=== PATIENT | female | born 1940 | race Caucasian/White ===

== ENCOUNTER 2017-12-01 08:22 | Inpatient (IN) ==
--- NOTE | 2017-11-30 16:09 | Discharge Summary ---
<Roz Collado E - Last Filed: 11/30/17 16:07> Date of Encounter: 11/30/17 - Discharge Diagnosis (1) Rotator cuff tear arthropathy of right shoulder Priority: Primary Status: Chronic (2) Osteoarthritis of right shoulder Priority: Secondary Status: Chronic Qualifiers: Osteoarthritis type: unspecified Qualified Code(s): M19.011 - Primary osteoarthritis, right shoulder (3) Chronic atrial fibrillation Priority: Secondary Status: Chronic (4) lobsterman current use of anticoagulant Priority: Secondary Status: Chronic (5) COPD (chronic obstructive pulmonary disease) Priority: Secondary Status: Chronic Qualifiers: COPD type: unspecified COPD Qualified Code(s): J44.9 - Chronic obstructive pulmonary disease, unspecified (6) HTN (hypertension) Priority: Secondary Status: Chronic Qualifiers: Hypertension type: unspecified Qualified Code(s): I10 - Essential (primary ) hypertension (7) Sleep apnea Priority: Secondary Status: Chronic Qualifiers: Sleep apnea type: unspecified type Qualified Code(s): G47.30 - Sleep apnea , unspecified (8) Noncompliance with CPAP treatment Priority: Secondary Status: Chronic (9) HLD (hyperlipidemia) Priority: Secondary Status: Chronic Qualifiers: Hyperlipidemia type: unspecified Qualified Code(s): E78.5 - Hyperlipidemia , unspecified (10) Hypothyroidism Priority: Secondary Status: Chronic Qualifiers: Hypothyroidism type: unspecified Qualified Code(s): E03.9 - Hypothyroidism , unspecified (11) Dementia Priority: Secondary Status: Chronic Qualifiers: Dementia type: unspecified type Dementia behavioral disturbance: without behavioral disturbance Qualified Code(s): F03.90 - Unspecified dementia without behavioral disturbance - Discharge Medications Home Medications: OxyCODONE Immed Rel [Roxicodone 5 MG] 5 mg PO Q6HR PRN 7 Days #28 tablet [Rx] Albuterol Sulfate [Albuterol Inhaler] 2 puff IH Q4HR PRN 12/01/17 [History] Donepezil HCl [Aricept] 10 mg PO HS 12/01/17 [History] Levothyroxine Sodium 150 mcg PO DAILY 12/01/17 [History] Lisinopril [Zestril] 40 mg PO HS 12/01/17 [History] Oxygen 2 l NS AD 12/01/17 [History] Ranitidine HCl [Zantac] 150 mg PO BID 12/01/17 [History] Rivaroxaban [Xarelto] 20 mg PO DAILY 12/01/17 [History] amLODIPine [Norvasc] 5 mg PO DAILY 12/01/17 [History] dilTIAZem HCl [Diltiazem ER] 240 mg PO DAILY 12/01/17 [History] Allergies/Adverse Reactions: 3 Allergy/AdvReac Type Severity Reaction Status Date / Time Erythromycin Base Allergy Anaphylaxis Verified 11/16/17 14:36 Primary care physician: Bonifacio Brown - Patient Status Disposition: Home, Self-Care Condition: Good - Discharge Instructions Follow Up With: Roz Collado PAC [Physician Bundle Clerk] - 12/09/17 2:30 pm (Second followup 12/16/17 @ 9:15am) Stewart Ponce MD [Partnered Physician] - 12/29/17 5:30 pm Additional Instructions: Discharge Instructions: Total Shoulder Please call [facility] ([phone]), your Primary Care Physician, or report to the Emergency Room if you have any of the following symptoms: Nausea, vomiting, fever greater that 101.5, swelling, chest pain, shortness of breath, increased pain/redness/drainage/odor for your incision site, numbness/ tingling, or any other concerning symptoms. ACTIVITY: Always keep your arm in the sling. Do not raise your arm away from your body. Do not use your arm to help with getting in or out of bed. No weight bearing permitted. Only perform those exercises given to you by your therapist. MEDICATIONS: Upon discharge resume your home medications. Take all the medications as prescribed. Take a stool softener if taking narcotic pain medications. Stool softeners are only effective if you drink enough fluids. Drink 6-8 glass of water or fluids a day, unless this is not allowed for another health problem. Despite using stool softeners, if you haven't had a bowel movement in 3 days, please switch to a gentle laxative. Gentle laxatives are sold over the counter. You should have a bowel movement within 24 hours, if not call the office. You will be discharged from the hospital with a prescription for pain medication. You are encouraged to decrease the use of narcotic pain medication as tolerated. Should you require a refill, please call the office. [facility] prescribes narcotic pain medication for only 4-6 weeks after surgery. If you require pain medication beyond this time period, you may be referred to your Primary Care Physician or to the Pain Clinic for further evaluation. Plan ahead for refills on pain medication as many narcotics either need to be picked up at the office or mailed. It is best to call 48-72 hours in advance of needing a prescription refill so you don't run out of medication. To help control the post-operative pain, you may take NSAIDs (Aleve,Advil, Motrin, Ibuprofen, Naprosyn) or Tylenol as prescribed on the bottle in addition to the pain medication. WOUND CARE: Leave the dressing on for 7-10 days. You may change the dressing if it becomes saturated greater than 50%. Do not get the dressing wet at anytime. Wash your hands with antibacterial soap, rinse and dry prior to any wound care. If you have oumar the visiting nurse or rehab facility can remove the stapes 10-14 days after surgery and place steri-strips across the wound. Leave the steri-strips in place until they fall off on their own. You may let water from the shower run on top of the steri-strips. If you do not have a visiting nurse or rehab facility, you will need to return to the office at 10-14 days for the oumar to be removed. If you have itching or redness around the dressing call the office. FOLLOW-UP: Please follow up with your surgeon in the orthopedic clinic, as scheduled - Hospital Course Hospital course: Ms. Bruno is a 77 year old female - Time Spent with Patient Total time spent providing and/or coordinating discharge services: <Stewart Ponce - Last Filed: 12/02/17 11:00> Date of Encounter: 12/02/17 Time of Encounter: 11:00 - Discharge Diagnosis (1) Rotator cuff tear arthropathy of right shoulder Priority: Primary Status: Chronic (2) Osteoarthritis of right shoulder Priority: Primary Status: Chronic Qualifiers: Osteoarthritis type: unspecified Qualified Code(s): M19.011 - Primary osteoarthritis, right shoulder (3) Chronic atrial fibrillation Priority: Secondary Status: Chronic (4) penitentiary current use of anticoagulant Priority: Secondary Status: Chronic (5) COPD (chronic obstructive pulmonary disease) Priority: Secondary Status: Chronic Qualifiers: COPD type: unspecified COPD Qualified Code(s): J44.9 - Chronic obstructive pulmonary disease, unspecified (6) HTN (hypertension) Priority: Secondary Status: Chronic Qualifiers: Hypertension type: unspecified Qualified Code(s): I10 - Essential (primary ) hypertension (7) Sleep apnea Priority: Secondary Status: Chronic Qualifiers: Sleep apnea type: unspecified type Qualified Code(s): G47.30 - Sleep apnea , unspecified (8) Noncompliance with CPAP treatment Priority: Secondary Status: Chronic (9) HLD (hyperlipidemia) Priority: Secondary Status: Chronic Qualifiers: Hyperlipidemia type: unspecified Qualified Code(s): E78.5 - Hyperlipidemia , unspecified (10) Hypothyroidism Priority: Secondary Status: Chronic Qualifiers: Hypothyroidism type: unspecified Qualified Code(s): E03.9 - Hypothyroidism , unspecified (11) Dementia Priority: Secondary Status: Chronic Qualifiers: Dementia type: unspecified type Dementia behavioral disturbance: without behavioral disturbance Qualified Code(s): F03.90 - Unspecified dementia without behavioral disturbance (12) Status post reverse total replacement of right shoulder Priority: Primary Status: Acute Primary care physician: Bonifacio Brown - Patient Status Functional capacity at discharge: independent ambulation Overall status at discharge: patient is progressing back to baseline - Hospital Course Hospital course: Ms. Bruno is a 77 year old female Status post right total shoulder replacement The patient had an uneventful postoperative course. They received antibiotics and physical therapy and were discharged in stable condition. There will follow -up in the office in 2 weeks. - Time Spent with Patient Total time spent providing and/or coordinating discharge services:
--- NOTE | 2017-12-01 07:40 | Anesthesia Evaluation PreOp ---
Date of Encounter: 12/01/17 Time of Encounter: 08:53 - Past History Planned Operation: right total shoulder replacement Cardiac History: HTN, Hyperlipidemia, Arrhythmia (chronic a-fib) Pulmonary History: Former smoker (quit 26yrs ago), Asthma, COPD (uses home O2 prn), KASEY Dx (doesn't use CPAP) Other Medical History: Thyroid (hypo), GERD, Other (hx abdominal carcinoid tumors) Anesthesia History: No Prior Anesthetic Complications, Past Anesthesia (sinus sx , tubal, appy) Alcohol Use: none Drug use: none Medications and Allergies Metoclopramide [Reglan] 10 mg PO Q6HR PRN #30 mls 01/04/16 [Rx] OxyCODONE Immed Rel [Roxicodone 5 MG] 5 mg PO Q6HR PRN 7 Days #28 tablet [Rx] 3 Allergy/AdvReac Type Severity Reaction Status Date / Time Erythromycin Base Allergy Anaphylaxis Verified 11/16/17 14:36 - Meds/Allergy Pre-op Review Medications Reviewed: Yes (last dose of Xarelto was on 11-30) Allergies Reviewed: Yes Beta Blockers on Current Med List: No Anesthesia Results - Labs echo 2018: Impressions: Technically sub-optimal due to poor echocardiographic windows. LVEF 55-60%. Not all LV segments were well visualized, but overall LVEF is normal. Indeterminate diastolic function. Normal right ventricular structure and function. Unable to estimate RVSP due to lack of TR jet. No obvious significant valvular dysfunction. Laboratory Tests 11/16/17 11/16/17 14:45 14:45 Hgb 13.6 Hct 40.8 PT 32.4 H INR 2.9 APTT 38.6 H - Imaging EKG: report reviewed (ATRIAL FIBRILLATION ST DEVIATION AND MODERATE T-WAVE ABNORMALITY, CONSIDER ANTEROLATERAL ISCHEMIA) Additional studies: stress test 2019: Impression: Pharmacologic stress ECG is non-diagnostic for ischemia due to baseline non-specific ST and T changes. Gated EF = 67%. Perfusion imaging was negative for ischemia or infarct. Anesthesia Exam Selected Entries 12/01/17 08:49 Temperature 97.8 F Pulse Rate 77 Respiratory Rate 18 Blood Pressure 153/79 O2 Sat by Pulse Oximetry 98 Weight: 72kg NPO (# of Hours): 8 - HEENT Pupil (Motor): EOMI Mallampati: II Teeth: Missing, Poor dentition Oral Opening: Greater than 3 - PHOTOGRAPH ENLARGER LOC: Oriented PHOTOGRAPH ENLARGER Motor: Normal RUE, Normal LUE, Normal RLE, Normal LLE, Normal Face PHOTOGRAPH ENLARGER Sensory: Normal: RUE, LUE, RLE, LLE, Face - Cardiac Rhythm: Irregular Murmur: None - Pulmonary Breath Sounds: bilateral Clear Respiratory Effort: Symmetrical Anesthesia Assess/Plan ASA Score: 3 Modified Priscilla Scale for Level of Consciousness: Cooperative, oriented, and tranquil Anesthetic Plan: General Monitoring Plan: Standard Monitors Recovery Plan: PACU (agrees to GA. Will not offer block as it is not essential and patient off Xarelto at just 24 hours. Reviewed the [place] guidelines.)
[2017-12-01] MEDS ORDERED: Lidocaine -MPF 1% 2 ML VIAL ID ONE (08:52)
[2017-12-01] MEDS ORDERED: Albuterol 2.5 MG/3 ML NEBULIZER IH ONE (08:52)
[2017-12-01] MEDS ORDERED: CeFAZolin Syr 2,000MG/20 ML 2,000 MG/20 ML SYRINGE IVPB ONE (08:52)
[2017-12-01] MEDS ORDERED: Ringers Solution, Lactated 1,000 ML IVC SCH ×2 (09:00→13:14)
[2017-12-01] MEDS ORDERED: Lidocaine -MPF 2% 2 ML VIAL ONE (09:27)
[2017-12-01] MEDS ORDERED: Ondansetron 4 MG/2 ML VIAL ONE (09:27)
[2017-12-01] MEDS ORDERED: *HR* Midazolam HCl 2 MG/2 ML VIAL ONE (09:27)
[2017-12-01] MEDS ORDERED: *HR* FentaNYL (PF) 100 MCG/2 ML VIAL ONE (09:27)
[2017-12-01] MEDS ORDERED: *HR* Succinylcholine 200 MG/10 ML VIAL IVP ONE (09:27)
[2017-12-01] MEDS ORDERED: *HR* Propofol 200 MG/20 ML VIAL IVP ONE (09:28)
[2017-12-01] MEDS ORDERED: EPHEDrine 50 MG/ML VIAL ONE (09:36)
[2017-12-01] MEDS ORDERED: Lidocaine -MPF 4% 5 ML AMPUL ONE (10:06)
--- NOTE | 2017-12-01 10:06 | History & Physical Report ---
Date of Encounter: 12/01/17 Time of Encounter: 10:06 24 Hour HP Update - Instructions Instructions: If the History and Physical is less than 30 days old and was completed prior to A.M. admission and or procedure and has NOT been updated on calendar day of procedure please complete this update prior to performing procedure. - Update Patient reports changes in Medical Condition: No Changes in examination, assessment, or condition: No Changes in Medication: No Preop tests/diagnostics Reviewed: Yes Surgery Remains Indicated: Yes Consent for Planned Operative Procedure(s) Verified: Yes - Pre-Operative Checklist Preoperative Checklist Indicated: No Prophylactic Antibiotic Ordered: Yes Is VTE Prophylaxis Indicated?: Yes
[2017-12-01] MEDS ORDERED: Acetaminophen IV 1,000 MG/100 ML INFUS..BTL ONE (11:19)
[2017-12-01] MEDS ORDERED: Ketorolac 30 MG/ML VIAL ONE (11:42)
--- NOTE | 2017-12-01 11:46 | Orthopedic Operative Note ---
Date of procedure: 12/01/17 Pre-op diagnosis: Right shoulder cuff tear arthropathy Post-op diagnosis: same (Shoulder arthritis) Procedure: Procedure: Total Shoulder Replacment Reverse, right Estimated blood loss: 100 cc Hardware: Metal and polyethylene replacement: Arthrex large glenoid baseplate, 2 4.5 screws. 1 6.5 screw, 42+4 glenosphere, 10 humeral stem, poly insert 3 Exam Under anesthesia: Full motion and no stability Procedural Notes: Irreparable supraspinatus tendon tear grade 4 arthritic changes humeral head glenoid socket. Operative procedure: The patient was brought to the operating room and placed on the operating room table. After general anesthesia was administered the operative shoulder was examined. Findings were noted. The patient was placed in the modified beachchair position. All pressure points were padded appropriately. And the head was stabilized in the neutral position. The operative extremity was prepped and draped in the sterile surgical fashion. The patient received IV antibiotics prior to skin incision. A standard deltopectoral approach was made to the operative shoulder. Incision was made to the skin and subcutaneous tissue,hemo stasis was obtained with Bovie cautery. Using careful blunt dissection the cephalic vein was identified and mobilized medially. The deltopectoral interval was developed and the clavipectoral fascia was incised. The subscap was released off the lesser tuberosity and tagged with #2 FiberWire suture. The humerus was dislocated patient noted to have irreparable tear supraspinatus tendon, and the humeral cut was made along the anatomic neck. Patient noted to have grade 4 arthritic changes humeral head Anterior and posterior Bankart retractors were placed to expose the glenoid. Patient noted to have grade 4 arthritic changes clot socket. The glenoid guide was seated and the centering hole was made. It was reamed with the appropriate reamer. The large baseplate was seated and secured with (2) 4.5 screws and one 6.5 screw. The baseplate was irrigated and dried and the 42+4 Glenosphere was seated and secured with the Whitehead taper. The Whitehead taper was tested and found to be secure the humerus was redislocated and prepared with the diaphyseal reamers, followed by a broaching process up to the appropriate size X in the patient's anatomic version. The metaphyseal reamer was then utilized. Trial reduction found the shoulder to be relocatable. Trial components were removed and the 10 stem was impacted in place in the patient's anatomic version. Trial reduction found the shoulder to be relocatable and stable with the appropriate 3 Trial component was removed and the real 3 Margaret was seated and secured the shoulder was reduced. The shoulder had excellent motion and excellent stability and no evidence of dislocation. The deep tissue was irrigated with pulse irrigation. The PA close the shoulder. The deltopectoral interval was closed with a running #1 PDS suture, subcutaneous tissue was irrigated and closed with 0 PDS suture, the skin was closed with Dermabond. The patient was placed in a sterile dressing, abduction brace and extubated. The patient was then transferred to the recovery room in stable condition. Anesthesia: NANDO Surgeon: Stewart Ponce Was there an assistant manager trainee present: Yes Telecommunications Specialist: Roz Collado Estimated blood loss (cc): 100 Condition: stable Disposition: PACU
[2017-12-01] MEDS: *HR* HYDROmorphone (PF) 1 MG/ML SYRINGE IVP PRN ×7 (12:06→13:38)
[2017-12-01] MEDS: *HR* Promethazine 25 MG/ML VIAL IVP PRN ×2 (12:11→12:19)
[2017-12-01 12:31] LABS: Hematocrit 36.5 % (35.3-44.9); Hemoglobin 12.1 g/dL (11.5-15.4)
--- NOTE | 2017-12-01 12:51 | Anesthesia Evaluation Post Op ---
Date of Encounter: 12/01/17 Time of Encounter: 12:50 - Vital Signs Vital Signs: Vital Signs/O2 Sat, Most Current Temp Pulse Resp BP Pulse Ox 98.9 F 65 16 155/74 96 12/01/17 12:26 12/01/17 12:36 12/01/17 12:36 12/01/17 12:36 12/01/17 12:36 - Lungs Lungs: Clear Ascult./Percussion - Airway Airway: Non-obstructed - Cardiovascular Regular Rate - Mental Status Mental Status: Alert & Oriented, Answers Appropriately - Pain Pain Scale: 0 Pain Scale used: Numeric (1 - 10) - Nausea Vomiting Nausea Vomiting: Not Present - Hydration Hydration: NPO, Has not voided - Discharge PostOp Status: Transfer Patient to floor
[2017-12-01] MEDS ORDERED: Naloxone 0.4 MG/ML INJ IVP PRN (13:14)
[2017-12-01] MEDS ORDERED: NON-FORMULARY MEDICATION 1 EACH EACH (Oxygen [Oxygen] 2 L) NS SCH (13:14)
[2017-12-01] MEDS ORDERED: Sennosides 8.6 MG TABLET PO PRN (13:14)
[2017-12-01] MEDS ORDERED: Temazepam 15 MG CAPSULE PO PRN (13:14)
[2017-12-01] MEDS ORDERED: *HR* OxyCODONE Immed Rel 5 MG TABLET PO PRN (13:14)
[2017-12-01] MEDS ORDERED: Ondansetron 4 MG/2 ML VIAL IVP PRN (13:14)
[2017-12-01] MEDS ORDERED: MOM Conc 10 ML UD.LIQ PO PRN (13:14)
[2017-12-01] MEDS: CeFAZolin Premix DUPLEX 2,000 MG/50 ML BAG IVPB SCH ×2 (15:18→23:32)
[2017-12-01] MEDS: *HR* OxyCODONE Immed Rel 5 MG TABLET PO PRN ×2 (16:32→20:58)
[2017-12-01] MEDS: Famotidine 20 MG TABLET PO SCH (20:58)
[2017-12-01] MEDS ORDERED: Lisinopril 20 MG TABLET PO SCH (21:00)
[2017-12-02] MEDS: *HR* HYDROmorphone (PF) 1 MG/ML SYRINGE IVP PRN ×2 (00:18→10:23)
[2017-12-02] MEDS: *HR* OxyCODONE Immed Rel 5 MG TABLET PO PRN ×3 (04:45→12:53)
[2017-12-02 06:38] LABS: Hematocrit 32.6 % (35.3-44.9); Hemoglobin 10.8 g/dL (11.5-15.4)
[2017-12-02] MEDS: Famotidine 20 MG TABLET PO SCH (08:09)
[2017-12-02] MEDS ORDERED: *HR* Rivaroxaban 10 MG TABLET PO SCH (09:00)
[2017-12-02] MEDS ORDERED: Diltiazem CD (24hr) 240 MG CAPSULE PO SCH (09:00)
[2017-12-02] MEDS ORDERED: Lisinopril 20 MG TABLET PO SCH (09:00)
[2017-12-02] MEDS ORDERED: amLODIPine 5 MG TABLET PO SCH (09:00)
[2017-12-02] MEDS ORDERED: Ketorolac 30 MG/ML VIAL IVP PRN (10:46)
--- NOTE | 2017-12-02 11:02 | Orthopedics Progress Note ---
Date of Encounter: 12/02/17 Time of Encounter: 11:01 - Assessment and Plan (1) Rotator cuff tear arthropathy of right shoulder Current Visit: No Status: Chronic (2) Osteoarthritis of right shoulder Current Visit: No Status: Chronic Qualifiers: Osteoarthritis type: unspecified Qualified Code(s): M19.011 - Primary osteoarthritis, right shoulder (3) Chronic atrial fibrillation Current Visit: No Status: Chronic (4) penitentiary current use of anticoagulant Current Visit: No Status: Chronic (5) COPD (chronic obstructive pulmonary disease) Current Visit: No Status: Chronic Qualifiers: COPD type: unspecified COPD Qualified Code(s): J44.9 - Chronic obstructive pulmonary disease, unspecified (6) HTN (hypertension) Current Visit: No Status: Chronic Qualifiers: Hypertension type: unspecified Qualified Code(s): I10 - Essential (primary ) hypertension (7) Sleep apnea Current Visit: No Status: Chronic Qualifiers: Sleep apnea type: unspecified type Qualified Code(s): G47.30 - Sleep apnea , unspecified (8) Noncompliance with CPAP treatment Current Visit: No Status: Chronic (9) HLD (hyperlipidemia) Current Visit: No Status: Chronic Qualifiers: Hyperlipidemia type: unspecified Qualified Code(s): E78.5 - Hyperlipidemia , unspecified (10) Hypothyroidism Current Visit: No Status: Chronic Qualifiers: Hypothyroidism type: unspecified Qualified Code(s): E03.9 - Hypothyroidism , unspecified (11) Dementia Current Visit: No Status: Chronic Qualifiers: Dementia type: unspecified type Dementia behavioral disturbance: without behavioral disturbance Qualified Code(s): F03.90 - Unspecified dementia without behavioral disturbance (12) Status post reverse total replacement of right shoulder Current Visit: Yes Status: Acute Subjective Interval history: Patient was seen this morning doing well without complaints. Afebrile vital signs stable. Operative extremity: Neurovascularly intact Dressing clean dry and intact Calves nontender Assessment and plan: Continue with postoperative care Discharged today Objective Vital signs: Vital Signs Temp Pulse Resp BP Pulse Ox 12/02/17 06:40 98.1 F 68 22 134/73 98 12/02/17 04:22 98.1 F 64 20 139/64 96 12/02/17 00:45 94 12/01/17 23:40 98.9 F 61 20 106/59 94 12/01/17 19:12 97.8 F 54 22 105/62 93 12/01/17 15:21 98.2 F 55 16 115/47 95 12/01/17 14:57 98.6 F 64 16 107/53 95 12/01/17 13:39 97.6 F 58 16 156/60 97 12/01/17 13:15 97.5 F L 63 16 160/76 95 12/01/17 12:56 99.4 F 59 14 160/65 97 12/01/17 12:46 54 14 160/64 93 12/01/17 12:36 65 14 155/74 96 12/01/17 12:26 98.9 F 63 16 154/71 96 12/01/17 12:16 71 16 157/61 96 12/01/17 12:06 73 16 156/76 96 12/01/17 11:56 98.9 F 87 16 179/87 99 12/01/17 11:17 97.8 F 77 18 153/79 98 Intake and Output 12/01/17 12/02/17 12/02/17 23:59 07:59 15:59 Intake Total 550 / 550 Output Total 0 / 0 Balance 550 / 550 Intake: IV Fluids 50 / 50 Ancef Premix DUPLEX 2,000 mg In 50 / 50 50 ml @ 100 mls/hr IVPB Q8HR [facility] Rx#:[id number] Oral 500 / 500 Output: Urine 0 / 0 Other: # Voids 1 - Labs CBC & BMP: 12/02/17 05:15 Labs: Abnormal lab results Hgb 10.8 g/dL (11.5-15.4) L 12/02/17 05:15 Hct 32.6 % (35.3-44.9) L 12/02/17 05:15 - VTE Documentation of Mechanical Device: Venous foot pump, device Consult Discharge Plan - Plan Additional Instructions: Discharge Instructions: Total Shoulder Please call [facility] ([phone]), your Primary Care Physician, or report to the Emergency Room if you have any of the following symptoms: Nausea, vomiting, fever greater that 101.5, swelling, chest pain, shortness of breath, increased pain/redness/drainage/odor for your incision site, numbness/ tingling, or any other concerning symptoms. ACTIVITY: Always keep your arm in the sling. Do not raise your arm away from your body. Do not use your arm to help with getting in or out of bed. No weight bearing permitted. Only perform those exercises given to you by your therapist. MEDICATIONS: Upon discharge resume your home medications. Take all the medications as prescribed. Take a stool softener if taking narcotic pain medications. Stool softeners are only effective if you drink enough fluids. Drink 6-8 glass of water or fluids a day, unless this is not allowed for another health problem. Despite using stool softeners, if you haven't had a bowel movement in 3 days, please switch to a gentle laxative. Gentle laxatives are sold over the counter. You should have a bowel movement within 24 hours, if not call the office. You will be discharged from the hospital with a prescription for pain medication. You are encouraged to decrease the use of narcotic pain medication as tolerated. Should you require a refill, please call the office. [facility] prescribes narcotic pain medication for only 4-6 weeks after surgery. If you require pain medication beyond this time period, you may be referred to your Primary Care Physician or to the Pain Clinic for further evaluation. Plan ahead for refills on pain medication as many narcotics either need to be picked up at the office or mailed. It is best to call 48-72 hours in advance of needing a prescription refill so you don't run out of medication. To help control the post-operative pain, you may take NSAIDs (Aleve,Advil, Motrin, Ibuprofen, Naprosyn) or Tylenol as prescribed on the bottle in addition to the pain medication. WOUND CARE: Leave the dressing on for 7-10 days. You may change the dressing if it becomes saturated greater than 50%. Do not get the dressing wet at anytime. Wash your hands with antibacterial soap, rinse and dry prior to any wound care. If you have oumar the visiting nurse or rehab facility can remove the stapes 10-14 days after surgery and place steri-strips across the wound. Leave the steri-strips in place until they fall off on their own. You may let water from the shower run on top of the steri-strips. If you do not have a visiting nurse or rehab facility, you will need to return to the office at 10-14 days for the oumar to be removed. If you have itching or redness around the dressing call the office. FOLLOW-UP: Please follow up with your surgeon in the orthopedic clinic, as scheduled Referrals: Roz Collado PAC [Physician Culinary Chef] - 12/09/17 2:30 pm (Second followup 12/16/17 @ 9:15am) Stewart Ponce MD [Partnered Physician] - 12/29/17 5:30 pm
[2017-12-02] MEDS ORDERED: Acetaminophen 325 MG TABLET PO PRN (13:05)
[2017-12-02 15:40] VITALS: BP 109/67
--- NOTE | 2017-12-02 16:53 | Event Note ---
Date of Encounter: 12/02/17 Time of Encounter: 12:45 PCR- POD# 1 R TSR Reverse ball and socket 12/01/17 PCR - Patient seen at bedside. Pain control: Adequate Participating in PT. All questions and concerns addressed. Educated on use of incentive spirometer, ambulation, and hydration. Patient educated on post-operative restrictions and care. Addressed: Pain control - adding cyclobenzaprine and tylenol. Patient has fragile skin - skin tear to right arm, instructed patient to change twice daily and replace bandage until healed. D/C plan: Home today outpatient therapy
== END 2017-12-02 16:03 | disposition home or self-care (01) | DRG 483 ==
LOC: SAMDAY 08:22 → 3NENU 13:12
PROVIDERS: ADMIT Internal Medicine; ATTEND Internal Medicine